=== PATIENT | female | born 1975 | race Caucasian/White ===

== ENCOUNTER → 2016-12-21 | Outpatient (CLI) | payer BC ==
[~2016-12-21] MED LIST: DEPAKOTE PO; NAPROSYN500 MG PO; PROTONIX PO
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
--- NOTE | ~2016-12-21 | EE ---
Unit #: [id number] #: [id number] Patient: SIERRA ANDERSON [id number] [address] [address] [id number] O MR#: [id number] NAME: SIERRA ANDERSON : 1975 SEX: F STUDY DATE/TIME: 12/21/2016 UNIT: CEEG ROOM: STUDY DESCRIPTION: Electroencephalogram. Attending Physician: Marty Mcallister II., M.D. Referring Physician: Marty Mcallister II., M.D. Primary Care Physician: Samira Colorado M.D. NEURODIAGNOSTICS REPORT EXAM Electroencephalogram. REASON FOR STUDY Epilepsy. TECHNICAL INFORMATION This is a routine EEG performed using the standard international 10-20 system electrode placement. Photic stimulation was performed. Hyperventilation was performed. REPORT Throughout the entire study the best background rhythm seem was approximately 10-11 Hospitalization. This rhythm was seen in both posterior head regions and does attenuation to eye opening and closure. Photic stimulation was performed, which did not elicit any epileptiform abnormalities. Hyperventilation was also performed, which did not elicited any abnormal buildup throughout the entire study. There were no electrographic seizures recorded, nor were there any epileptiform abnormalities seen. Sleep was not recorded during the EEG. INTERPRETATION This is a normal awake EEG. A normal EEG does not rule out the possibility of a seizure disorder. Clinical correlation is advised. Dictated by... Marty Mcallister II., M.D. GWS/gz TD: 12/23/2016 09:19 JOB #: [id number] Unit #: [id number] #: [id number] Patient: SIERRA ANDERSON NEURODIAGNOSTICS REPORT Page 1 of 1 X NEURODIAGNOSTICS REPORT
== END | disposition home or self-care (01) ==
LOC: CEEG 06:59
DX: G40.909 Epilepsy, unspecified, not intractable, without status epilepticus (principal)
CPT/HCPCS: 70553; 95816; A9577